=== PATIENT | male | born 1945 | race Caucasian/White ===

== ENCOUNTER 2016-09-03 07:16 | Outpatient (CLI) | payer MEDICARE, OTHER | END 2016-09-03 07:17 | disposition home or self-care (01) | DX: I82.509 Chronic embolism and thrombosis of unspecified deep veins of unspecified lower extremity (principal); Z79.01 Long term (current) use of anticoagulants ==

== ENCOUNTER 2016-10-29 07:10 | Outpatient (CLI) | payer MEDICARE, OTHER | END 2016-10-29 07:11 | disposition home or self-care (01) | DX: I82.509 Chronic embolism and thrombosis of unspecified deep veins of unspecified lower extremity (principal); Z79.01 Long term (current) use of anticoagulants ==

== ENCOUNTER 2016-12-30 13:54 | Outpatient (CLI) | payer MEDICARE, OTHER | END 2016-12-30 13:55 | disposition home or self-care (01) | LOC: LAB.S 13:54 | PROVIDERS: ATTEND Internal Medicine | DX: I82.509 Chronic embolism and thrombosis of unspecified deep veins of unspecified lower extremity (principal) | CPT/HCPCS: 85610 ==

== ENCOUNTER 2017-02-14 07:12 | Outpatient (CLI) | payer MEDICARE, OTHER | END 2017-02-14 07:13 | disposition home or self-care (01) | LOC: LAB.F 07:12 | PROVIDERS: ATTEND Internal Medicine | DX: I82.509 Chronic embolism and thrombosis of unspecified deep veins of unspecified lower extremity (principal) | CPT/HCPCS: 85610 ==

== ENCOUNTER 2017-02-25 07:14 | Outpatient (CLI) | payer MEDICARE, OTHER ==
[2017-02-25 11:36] LABS: BASOPHILS % (AUTO) 0.4 %; EOSINOPHILS # (AUTO) 0.1 10^3/uL (0.0-0.7); HGB - HEMOGLOBIN 15.4 g/dL (14.0-18.0); LYMPHOCYTES # (AUTO) 1.6 10^3/uL (1.5-3.5); MONOCYTES # (AUTO) 0.6 10^3/uL (0.0-1.0); UNCORRECTED WHITE BLOOD COUNT 5.3 x10^3/uL; WHITE BLOOD COUNT 5.3 x10^3/uL (4.8-10.8)
[2017-02-25 11:47] LABS: CHOL/HDL RATIO 3.5 (<5.0); CHOLESTEROL 155 mg/dL; GLUCOSE 100 mg/dL (70-100); HDL CHOLESTEROL 44 mg/dL; LDL/HDL RATIO 2.1 (<3.6); TRIGLYCERIDES 100 mg/dL; VLDL CHOLESTEROL 20 mg/dL
[2017-02-25 12:05] LABS: EOSINOPHILS % (AUTO) 1.5 %; HCT - HEMATOCRIT 44.7 % (42.0-52.0); LYMPHOCYTES % (AUTO) 30.8 %; MEAN CORPUSCULAR HEMOGLOBIN 31.5 pg (27.0-31.0); MEAN CORPUSCULAR HGB CONC 34.5 g/dL (32.0-36.0); MEAN CORPUSCULAR VOLUME 91.3 fL (80.0-94.0); MEAN PLATELET VOLUME 7.6 fL (7.4-11.4); MONOCYTES % (AUTO) 10.9 %; NEUTROPHILS % (AUTO) 56.4 %; NUCLEATED RED BLOOD CELLS AUTO 0.1 /100WBC; RED BLOOD COUNT 4.89 10^6/uL (4.70-6.10); RED CELL DISTRIBUTION WIDTH 13.7 % (12.0-15.0)
== END 2017-02-25 07:15 | disposition home or self-care (01) ==
LOC: LAB.F 07:14
PROVIDERS: ATTEND Internal Medicine
DX: I82.509 Chronic embolism and thrombosis of unspecified deep veins of unspecified lower extremity (principal); E78.5 Hyperlipidemia, unspecified; N52.9 Male erectile dysfunction, unspecified; D07.5 Carcinoma in situ of prostate; Z79.01 Long term (current) use of anticoagulants
CPT/HCPCS: 36415; 80061; 82947; 84153; 85025

== ENCOUNTER 2017-05-23 07:05 | Outpatient (CLI) | payer MEDICARE, OTHER | END 2017-05-23 07:06 | disposition home or self-care (01) | LOC: LAB.F 07:05 | PROVIDERS: ATTEND Internal Medicine | DX: I82.509 Chronic embolism and thrombosis of unspecified deep veins of unspecified lower extremity (principal); Z79.01 Long term (current) use of anticoagulants | CPT/HCPCS: 85610 ==

== ENCOUNTER 2017-06-02 14:40 | Outpatient (CLI) | payer MEDICARE, OTHER | END 2017-06-02 14:41 | disposition home or self-care (01) | LOC: LAB.F 14:40 | PROVIDERS: ATTEND Internal Medicine | DX: I82.509 Chronic embolism and thrombosis of unspecified deep veins of unspecified lower extremity (principal); Z79.01 Long term (current) use of anticoagulants | CPT/HCPCS: 85610 ==

== ENCOUNTER 2017-07-07 10:07 | Outpatient (CLI) | payer MEDICARE, OTHER | END 2017-07-07 10:08 | disposition home or self-care (01) | LOC: LAB.S 10:07 | PROVIDERS: ATTEND Internal Medicine | DX: I82.509 Chronic embolism and thrombosis of unspecified deep veins of unspecified lower extremity (principal); Z79.01 Long term (current) use of anticoagulants | CPT/HCPCS: 85610 ==

== ENCOUNTER 2017-07-13 03:45 | Emergency (ER) | payer MEDICARE, OTHER ==
[2017-07-13] MEDS ORDERED: DEXAMETHASONE 10 MG/ML VIAL PO STA (04:07)
[2017-07-13] MEDS ORDERED: KETOROLAC 60 MG/2 ML VIAL IM STA (04:07)
--- NOTE | 2017-07-13 04:11 | ED Physician Documentation ---
PD HPI NECK PAIN - Stated complaint Stated Complaint: NECK STIFFNESS - Chief complaint Chief Complaint: Ext Problem - History obtained from History obtained from: Patient, Family - History of Present Illness Timing - onset: Enter time (129), Today Timing - duration: Hours Timing - details: Abrupt onset, Still present Location: Mid, Lower Quality: Pain, Spasm, Sharp Associated symptoms: No: Fever, Weakness, Numbness, Incontinent of urine, Unable to urinate, Hematuria, Incontinent of stool Improves with: Rest, Position Worsened by: Movement, Twisting Contributing factors: Other (watches TV in a recliner and will nap there as well.) Similar symptoms before: No diagnosis Recently seen: Clinic - Additional information Additional information: 71-year-old male has had a sore neck for the past 4 days and significantly worse and he is unable to move his neck at all. He was feeling better earlier in the day and he did some chain sawing. He has recently been seen in walk-in clinic for URI and was put on a course of antibiotic for 10 days and his symptoms cleared completely. He had his INR checked 5 days ago it was elevated and he did not stop his medication. Review of Systems Constitutional: denies: Fever, Chills, Myalgias, Fatigue Eyes: denies: Decreased vision Ears: denies: Ear pain Nose: denies: Rhinorrhea / runny nose, Congestion Throat: denies: Sore throat Cardiac: denies: Chest pain / pressure, Palpitations Respiratory: denies: Dyspnea, Cough GI: denies: Abdominal Pain, Nausea, Vomiting : denies: Dysuria, Frequency Skin: denies: Rash Musculoskeletal: reports: Neck pain. denies: Back pain, Extremity pain Neurologic: denies: Generalized weakness, Focal weakness, Numbness, Difficulty speaking, Confused, Altered mental status, Headache, Head injury, LOC PD PAST MEDICAL HISTORY - Past Medical History Past Medical History: Yes Cardiovascular: Hypertension, High cholesterol, Deep vein thrombosis - Past Surgical History Past Surgical History: No - Present Medications Home Medications: Ambulatory Orders Medication Instructions Recorded Confirmed Amlodipine Besylate 5 mg PO DAILY 07/13/17 07/13/17 Cyclobenzaprine [Flexeril] 10 mg PO TID PRN #20 tablet 07/13/17 HYDROcod/ACETAM 5/325 [[place] 5/325] 1 - 2 ea PO Q6H PRN #15 tablet 07/13/17 Multivitamin [Multivitamins] 1 cap PO DAILY 07/13/17 07/13/17 Simvastatin 10 mg PO DAILY 07/13/17 07/13/17 Warfarin Sodium [Coumadin] 2 mg PO DAILY 07/13/17 07/13/17 Warfarin Sodium [Coumadin] 3 mg PO DAILY 07/13/17 07/13/17 - Allergies Allergies/Adverse Reactions: Allergies Allergy/AdvReac Type Severity Reaction Status Date / Time No Known Drug Allergies Allergy Verified 07/13/17 03:50 - Social History Does the pt smoke?: No Smoking Status: Never smoker Does the pt drink ETOH?: Yes Does the pt have substance abuse?: No - POLST Patient has POLST: No PD ED PE NORMAL - Vitals Vital signs reviewed: Yes (hypertensive ) - General General: Alert and oriented X 3, No acute distress, Well developed/nourished, Other (The patient is sitting up and not moving his neck he carefully moves his body to view to the side. ) - HEENT HEENT: Atraumatic, PERRL, EOMI, Ears normal, Moist mucous membranes, Pharynx benign - Neck Neck: Other (There is some central pain to palpation of the mid and lower cervical spine. He is not able to flex or extend without severe pain. He has some relief with traction placed on the mastoids and this allows some movement ) - Cardiac Cardiac: RRR, No murmur - Respiratory Respiratory: No respiratory distress, Clear bilaterally - Back Back: No CVA TTP - Derm Derm: Normal color, Warm and dry, No rash - Extremities Extremities: No deformity, No edema - Neuro Neuro: Alert and oriented X 3, control engineer 2-12 intact, No motor deficit, No sensory deficit, Normal speech Eye Opening: Spontaneous Motor: Obeys Commands Verbal: Oriented GCS Score: 15 - Psych Psych: Normal mood, Normal affect Results - Vitals Vitals: Vital Signs - 24 hr 07/13/17 03:50 Temperature 36.4 C L Heart Rate 92 Respiratory 18 Rate Blood Pressure 145/82 H O2 Saturation 97 Oxygen O2 Source Room air - Labs Labs: Laboratory Tests 07/13/17 04:15 Whole Blood INR 2.7 H PD MEDICAL DECISION MAKING - ED course Complexity details: reviewed old records, reviewed results, re-evaluated patient , considered differential, d/w patient, d/w family ED course: 71-year-old male with history of DVT who is on Coumadin has a very stiff neck this morning and he has good improvement with use of Toradol and dexamethasone. His INR is 2.7 this morning a marked improvement from 3.9 earlier in the week. I am less concerned about spinal epidural abscess or bleeding. Departure - Departure Disposition: 01 Home, Self Care Clinical Impression: Torticollis, acute Condition: Stable Instructions: ED Spasm Neck No Injury Follow-Up: Trav Sam MD [Primary Care Provider] - Prescriptions: Cyclobenzaprine [Flexeril] 10 mg PO TID PRN #20 tablet PRN Reason: Spasms HYDROcod/ACETAM 5/325 [[place] 5/325] 1 - 2 ea PO Q6H PRN #15 tablet PRN Reason: Pain
[2017-07-13] MEDS ORDERED: HYDROcod/ACET 5/325 Prepack 6 PO STA (04:54)
[2017-07-13 05:06] VITALS: BP 117/82
== END 2017-07-13 05:05 | disposition home or self-care (01) ==
LOC: ED 03:45
DX: M43.6 Torticollis (principal); I10 Essential (primary) hypertension; E78.00 Pure hypercholesterolemia, unspecified; Z86.718 Personal history of other venous thrombosis and embolism; Z79.01 Long term (current) use of anticoagulants
CPT/HCPCS: 85610; 96372; 99283; 99284

== ENCOUNTER 2017-09-22 04:56 | Emergency (ER) | payer MEDICARE, OTHER ==
[2017-09-22 05:02] VITALS: BP 149/83
--- NOTE | 2017-09-22 05:11 | ED Physician Documentation ---
PD HPI NECK PAIN - Stated complaint Stated Complaint: STIFF NECK - Chief complaint Chief Complaint: Back Pain - History obtained from History obtained from: Patient - History of Present Illness Timing - onset: Enter time (22:30), Last night Timing - duration: Hours Timing - details: Gradual onset Pain level now: 6 Location: Upper, Mid, Lower Quality: Pain, Spasm, Similar to prior episodes Associated symptoms: No: Fever, Weakness, Numbness, Incontinent of urine, Unable to urinate, Hematuria, Incontinent of stool Improves with: Rest, Position Worsened by: Movement Similar symptoms before: Diagnosis (torticoliis) Recently seen: Emergency Dept - Additional information Additional information: T and R from this ED few months ago for same, had good relief with IM toradol and PO decadron, and he requests those medications at this time. this episode started at approximately 10:30 PM while at rest after driving all day, which he feels locked his neck up. denies injury, fever, chills, sweats. he tried a tablet of flexeril, prescribed from previous visit, but no relief. he does not think he ever filled the vicodin rx (and if he did, he and his do not know where it is). Review of Systems Constitutional: reports: Reviewed and negative Ears: reports: Reviewed and negative Nose: reports: Reviewed and negative Musculoskeletal: reports: Neck pain. denies: Back pain Neurologic: reports: Reviewed and negative PD PAST MEDICAL HISTORY - Past Medical History Past Medical History: Yes Cardiovascular: Hypertension, High cholesterol, Deep vein thrombosis - Past Surgical History Past Surgical History: No - Present Medications Home Medications: Ambulatory Orders Medication Instructions Recorded Confirmed Amlodipine Besylate 5 mg PO DAILY 07/13/17 07/13/17 Cyclobenzaprine [Flexeril] 10 mg PO TID PRN #20 tablet 07/13/17 Multivitamin [Multivitamins] 1 cap PO DAILY 07/13/17 07/13/17 Simvastatin 10 mg PO DAILY 07/13/17 07/13/17 Warfarin Sodium [Coumadin] 2 mg PO DAILY 07/13/17 07/13/17 Warfarin Sodium [Coumadin] 3 mg PO DAILY 07/13/17 07/13/17 Hydrocodone/Acetaminophen 1 - 2 each PO Q6HR PRN #14 tablet 09/22/17 [Hydrocodon-Acetaminophen 5-325] - Allergies Allergies/Adverse Reactions: Allergies Allergy/AdvReac Type Severity Reaction Status Date / Time No Known Drug Allergies Allergy Verified 09/22/17 05:02 - Social History Does the pt smoke?: No Smoking Status: Never smoker Does the pt drink ETOH?: Yes Does the pt have substance abuse?: No - POLST Patient has POLST: No PD ED PE NORMAL - Vitals Vital signs reviewed: Yes - General General: Alert and oriented X 3 (NAD while standing , looking stiffly straight ahead, but clearly uncomfortable with any attempt at rotation, flexion, or extension of neck), No acute distress (NAD while standing , looking stiffly straight ahead), Well developed/nourished - HEENT HEENT: PERRL, EOMI, Moist mucous membranes - Neck Neck: No bony TTP Results - Vitals Vitals: Vital Signs - 24 hr 09/22/17 04:58 Temperature 36.4 C L Heart Rate 85 Respiratory 16 Rate Blood Pressure 149/83 H O2 Saturation 98 Oxygen O2 Source Room air PD MEDICAL DECISION MAKING - ED course Complexity details: reviewed old records, re-evaluated patient, considered differential, d/w patient ED course: adequate relief with toradol and decadron Departure - Departure Disposition: 01 Home, Self Care Clinical Impression: Torticollis, acute Condition: Good Instructions: ED Neck Pain No Trauma Follow-Up: Trav Sam MD [Primary Care Provider] - Within 1 week Prescriptions: Hydrocodone/Acetaminophen [Hydrocodon-Acetaminophen 5-325] 1 - 2 each PO Q6HR PRN #14 tablet PRN Reason: Pain Discharge Date/Time: 09/22/17 06:17
[2017-09-22] MEDS ORDERED: DEXAMETHASONE 10 MG/ML VIAL PO STA (05:20)
[2017-09-22] MEDS ORDERED: KETOROLAC 60 MG/2 ML VIAL IM STA (05:20)
[2017-09-22] MEDS ORDERED: CHERRY SYRUP 10 ML UDC PO ONE (05:35)
== END 2017-09-22 06:17 | disposition home or self-care (01) ==
LOC: ED 04:56
DX: M43.6 Torticollis (principal); I10 Essential (primary) hypertension; E78.00 Pure hypercholesterolemia, unspecified; Z86.718 Personal history of other venous thrombosis and embolism; Z79.01 Long term (current) use of anticoagulants
CPT/HCPCS: 96372; 99283; A9270

== ENCOUNTER 2017-09-25 13:02 | Outpatient (CLI) | payer MEDICARE, OTHER | END 2017-09-25 13:03 | disposition home or self-care (01) | LOC: LAB.F 13:02 | PROVIDERS: ATTEND Internal Medicine | DX: I82.509 Chronic embolism and thrombosis of unspecified deep veins of unspecified lower extremity (principal); Z79.01 Long term (current) use of anticoagulants | CPT/HCPCS: 85610 ==

== ENCOUNTER 2017-11-19 08:09 | Outpatient (CLI) | payer MEDICARE, OTHER | END 2017-11-19 08:10 | disposition home or self-care (01) | LOC: LAB.F 08:09 | PROVIDERS: ATTEND Internal Medicine | DX: I82.509 Chronic embolism and thrombosis of unspecified deep veins of unspecified lower extremity (principal); Z79.01 Long term (current) use of anticoagulants | CPT/HCPCS: 85610 ==

== ENCOUNTER 2017-12-10 10:14 | Outpatient (CLI) | payer MEDICARE, OTHER | END 2017-12-10 10:15 | disposition home or self-care (01) | LOC: LAB.F 10:14 | PROVIDERS: ATTEND Internal Medicine | DX: I82.509 Chronic embolism and thrombosis of unspecified deep veins of unspecified lower extremity (principal); Z79.01 Long term (current) use of anticoagulants | CPT/HCPCS: 85610 ==

== ENCOUNTER 2018-02-02 07:15 | Outpatient (CLI) | payer MEDICARE, OTHER | END 2018-02-02 07:16 | disposition home or self-care (01) | LOC: LAB.F 07:15 | PROVIDERS: ATTEND Internal Medicine | DX: I82.509 Chronic embolism and thrombosis of unspecified deep veins of unspecified lower extremity (principal); Z79.01 Long term (current) use of anticoagulants | CPT/HCPCS: 85610 ==

== ENCOUNTER 2018-03-04 07:12 | Outpatient (CLI) | payer MEDICARE, OTHER ==
[2018-03-04 10:42] LABS: CHOL/HDL RATIO 3.8 (<5.0); CHOLESTEROL 165 mg/dL; GLUCOSE,FASTING 105 mg/dL (70-100); HDL CHOLESTEROL 43 mg/dL; LDL CHOLESTEROL,CALCULATED 94 mg/dL; LDL/HDL RATIO 2.2 (<3.6); VLDL CHOLESTEROL 28 mg/dL
== END 2018-03-04 07:13 | disposition home or self-care (01) ==
LOC: LAB.F 07:12
PROVIDERS: ATTEND Internal Medicine
DX: Z00.00 Encounter for general adult medical examination without abnormal findings (principal); D07.5 Carcinoma in situ of prostate; I82.509 Chronic embolism and thrombosis of unspecified deep veins of unspecified lower extremity; E78.5 Hyperlipidemia, unspecified; R73.01 Impaired fasting glucose; I10 Essential (primary) hypertension; E66.9 Obesity, unspecified
CPT/HCPCS: 36415; 80061; 82947; 83721; 84153

== ENCOUNTER 2018-08-24 07:08 | Outpatient (CLI) | payer MEDICARE, OTHER | END 2018-08-24 07:09 | LOC: LAB.F 07:08 | PROVIDERS: ATTEND Internal Medicine | DX: I82.509 Chronic embolism and thrombosis of unspecified deep veins of unspecified lower extremity (principal); Z79.01 Long term (current) use of anticoagulants | CPT/HCPCS: 85610 ==

== ENCOUNTER 2018-09-14 07:28 | Outpatient (CLI) | payer MEDICARE, OTHER | END 2018-09-14 07:29 | disposition home or self-care (01) | LOC: LAB.F 07:28 | PROVIDERS: ATTEND Internal Medicine | DX: I82.509 Chronic embolism and thrombosis of unspecified deep veins of unspecified lower extremity (principal); Z79.01 Long term (current) use of anticoagulants | CPT/HCPCS: 85610 ==

== ENCOUNTER 2018-12-04 13:29 | Outpatient (CLI) | payer MEDICARE, OTHER | END 2018-12-04 13:30 | disposition home or self-care (01) | LOC: LAB.F 13:29 | PROVIDERS: ATTEND Internal Medicine | DX: I82.509 Chronic embolism and thrombosis of unspecified deep veins of unspecified lower extremity (principal); Z79.01 Long term (current) use of anticoagulants | CPT/HCPCS: 85610 ==

== ENCOUNTER 2019-02-03 06:52 | Outpatient (CLI) | payer MEDICARE, OTHER ==
[2019-02-03 10:52] LABS: CHOL/HDL RATIO 3.3 (<5.0); CHOLESTEROL 119 mg/dL; GLUCOSE,FASTING 108 mg/dL (70-100); HDL CHOLESTEROL 36 mg/dL; LDL CHOLESTEROL,CALCULATED 66 mg/dL; LDL/HDL RATIO 1.8 (<3.6); VLDL CHOLESTEROL 17 mg/dL
== END 2019-02-03 06:53 | disposition home or self-care (01) ==
LOC: LAB.S 06:52
PROVIDERS: ATTEND Internal Medicine
DX: I82.509 Chronic embolism and thrombosis of unspecified deep veins of unspecified lower extremity (principal); Z79.01 Long term (current) use of anticoagulants; I10 Essential (primary) hypertension; D07.5 Carcinoma in situ of prostate; E78.5 Hyperlipidemia, unspecified; R73.01 Impaired fasting glucose; E66.9 Obesity, unspecified; M79.672 Pain in left foot
CPT/HCPCS: 36415; 80061; 82947; 83721; 84153; 85610

== ENCOUNTER 2019-04-23 09:52 | Outpatient (CLI) | payer MEDICARE, OTHER | END 2019-04-23 09:53 | disposition home or self-care (01) | LOC: LAB.S 09:52 | PROVIDERS: ATTEND Internal Medicine | DX: I82.509 Chronic embolism and thrombosis of unspecified deep veins of unspecified lower extremity (principal); Z79.01 Long term (current) use of anticoagulants | CPT/HCPCS: 85610 ==

== ENCOUNTER 2019-06-17 09:52 | Outpatient (CLI) | payer MEDICARE, OTHER | END 2019-06-17 09:53 | disposition home or self-care (01) | LOC: LAB.S 09:52 | PROVIDERS: ATTEND Internal Medicine | DX: Z79.01 Long term (current) use of anticoagulants (principal); I82.509 Chronic embolism and thrombosis of unspecified deep veins of unspecified lower extremity | CPT/HCPCS: 85610 ==

== ENCOUNTER 2019-08-18 14:01 | Outpatient (CLI) | payer MEDICARE, OTHER | END 2019-08-18 14:02 | disposition home or self-care (01) | LOC: LAB.S 14:01 | PROVIDERS: ATTEND Internal Medicine | DX: Z79.01 Long term (current) use of anticoagulants (principal); I82.509 Chronic embolism and thrombosis of unspecified deep veins of unspecified lower extremity | CPT/HCPCS: 85610 ==

== ENCOUNTER 2019-12-09 13:06 | Outpatient (CLI) | payer MEDICARE, OTHER | END 2019-12-09 13:07 | disposition home or self-care (01) | LOC: LAB.S 13:06 | PROVIDERS: ATTEND Internal Medicine | DX: I82.509 Chronic embolism and thrombosis of unspecified deep veins of unspecified lower extremity (principal); Z79.01 Long term (current) use of anticoagulants | CPT/HCPCS: 85610 ==

== ENCOUNTER 2020-03-04 08:54 | Outpatient (CLI) | payer MEDICARE, OTHER ==
[2020-03-04 13:49] LABS: CHOL/HDL RATIO 3.9 (<5.0); CHOLESTEROL 156 mg/dL; HDL CHOLESTEROL 40 mg/dL; LDL CHOLESTEROL,CALCULATED 82 mg/dL; LDL/HDL RATIO 2.1 (<3.6); VLDL CHOLESTEROL 34 mg/dL
== END 2020-03-04 08:55 | disposition home or self-care (01) ==
LOC: LAB.S 08:54
PROVIDERS: ATTEND Internal Medicine
DX: Z00.00 Encounter for general adult medical examination without abnormal findings (principal); I10 Essential (primary) hypertension; D07.5 Carcinoma in situ of prostate; I82.509 Chronic embolism and thrombosis of unspecified deep veins of unspecified lower extremity; E78.5 Hyperlipidemia, unspecified; E66.9 Obesity, unspecified; R73.01 Impaired fasting glucose; Z79.01 Long term (current) use of anticoagulants
CPT/HCPCS: 36415; 80061; 82947; 83721; 84153; 85610

== ENCOUNTER 2020-03-14 06:55 | Outpatient (CLI) | payer MEDICARE, OTHER | END 2020-03-14 06:56 | disposition home or self-care (01) | LOC: LAB 06:55 | PROVIDERS: ATTEND Internal Medicine | DX: Z00.00 Encounter for general adult medical examination without abnormal findings (principal); R73.01 Impaired fasting glucose | CPT/HCPCS: 36415; 82947 ==

== ENCOUNTER 2020-04-26 07:11 | Outpatient (CLI) | payer MEDICARE, OTHER | END 2020-04-26 07:12 | disposition home or self-care (01) | LOC: LAB.S 07:11 | PROVIDERS: ATTEND Internal Medicine | DX: I82.509 Chronic embolism and thrombosis of unspecified deep veins of unspecified lower extremity (principal); Z79.01 Long term (current) use of anticoagulants | CPT/HCPCS: 85610 ==

== ENCOUNTER 2020-06-08 09:29 | Outpatient (CLI) | payer MEDICARE, OTHER | END 2020-06-08 09:30 | disposition home or self-care (01) | LOC: LAB.S 09:29 | PROVIDERS: ATTEND Internal Medicine | DX: I82.509 Chronic embolism and thrombosis of unspecified deep veins of unspecified lower extremity (principal); Z79.01 Long term (current) use of anticoagulants | CPT/HCPCS: 85610 ==

== ENCOUNTER 2020-06-19 23:14 | Emergency (ER) | payer MEDICARE, OTHER ==
[2020-06-19 23:25] VITALS: BP 137/77
[2020-06-19] MEDS ORDERED: methocarbamoL 500 MG TABLET PO STA (23:44)
[2020-06-19] MEDS ORDERED: KETOROLAC 30 MG/ML VIAL IM STA (23:44)
--- NOTE | 2020-06-20 00:30 | ED Physician Documentation ---
History of Present Illness - Stated complaint Stated Complaint: NECK PAIN/STIFF - Chief complaint Chief Complaint: Trauma Hd/Nk - Additonal information Additional information: 74-year-old man with history of high blood pressure, hyperlipidemia presents with neck pain, gradual onset upon waking from sleep late tonight, bilateral posterior neck with stiffness sensation, worse with head turning, spasmodic mild/moderate severity. patient has had pain like this before, relieved with toradol/muscle relaxers. denies alfredo, dizziness, fnd, chest pain sore throat, sob, traumatic injury. Review of Systems Skin: denies: Rash Musculoskeletal: reports: Neck pain. denies: Back pain Neurologic: denies: Focal weakness, Numbness PD PAST MEDICAL HISTORY - Past Medical History Past Medical History: Yes Cardiovascular: Hypertension, High cholesterol, Deep vein thrombosis Respiratory: None HEENT: Chronic hearing loss Derm: None - Past Surgical History Past Surgical History: No General: Cholecystectomy, Appendectomy, Hiatal hernia repair Ortho: Knee replacement Cardiovascular: Fempop bypass - Present Medications Home Medications: Ambulatory Orders Medication Instructions Recorded Confirmed Amlodipine Besylate 5 mg PO DAILY 07/13/17 07/13/17 Multivitamin [Multivitamins] 1 cap PO DAILY 07/13/17 07/13/17 Simvastatin 10 mg PO DAILY 07/13/17 07/13/17 Warfarin Sodium [Coumadin] 2 mg PO DAILY 07/13/17 07/13/17 Warfarin Sodium [Coumadin] 3 mg PO DAILY 07/13/17 07/13/17 Methocarbamol [Robaxin-750] 750 mg PO Q8H PRN 3 Days #9 tablet 06/20/20 - Allergies Allergies/Adverse Reactions: Allergies Allergy/AdvReac Type Severity Reaction Status Date / Time No Known Drug Allergies Allergy Verified 09/22/17 05:02 - Social History Does the pt smoke?: No Smoking Status: Never smoker Does the pt drink ETOH?: Yes Does the pt have substance abuse?: No - POLST Patient has POLST: No PD ED PE NORMAL - Vitals Vital signs reviewed: Yes - General General: Alert and oriented X 3 - HEENT HEENT: Atraumatic, PERRL, EOMI - Neck Neck: Supple, no meningeal sign, Other (BL trapezius muscle ttp at the superior aspect on insertion at the base of the skull. discomfort with passive rom of the neck. ) - Cardiac Cardiac: RRR - Respiratory Respiratory: No respiratory distress, Clear bilaterally - Derm Derm: Normal color, Warm and dry - Neuro Neuro: Alert and oriented X 3, electrical engineering manager 2-12 intact, No motor deficit, No sensory deficit, Normal speech Results - Vitals Vitals: Vital Signs - 24 hr 06/19/20 23:18 Temperature 36.1 C L Heart Rate 88 Respiratory 18 Rate Blood Pressure 137/77 H O2 Saturation 96 Oxygen O2 Source Room air PD MEDICAL DECISION MAKING - ED course Complexity details: reviewed results, re-evaluated patient, d/w patient ED course: 74-year-old man with neck pain in a muscular distribution without red flags for dissection. Improvement in pain with Toradol and Robaxin. Extensive education given about return cautions. Patient will follow up with his primary doctor Departure - Departure Disposition: 01 Home, Self Care Clinical Impression: Neck pain Condition: Good Instructions: ED Neck Back Pain General Prescriptions: Methocarbamol [Robaxin-750] 750 mg PO Q8H PRN 3 Days #9 tablet PRN Reason: Pain Comments: You were seen in the emergency department for muscle spasm in the neck. We gave you Toradol via a shot and Robaxin, a muscle relaxant by a pill. You have been given a prescription for Robaxin. Be careful because it is mildly sedating And can increase your risk of falls. Do gentle stretching in the hot shower for your neck and consider IcyHot or [employer]ay [id number]. Get a memory foam pillow and try to sleep on your back to prevent muscle spasms in the neck. Return to the ED if you have any new or worsening symptoms. And follow-up with your primary doctor Discharge Date/Time: 06/20/20 00:34
== END 2020-06-20 00:34 | disposition home or self-care (01) ==
LOC: ED 23:14
DX: M54.2 Cervicalgia (principal); M62.838 Other muscle spasm; I10 Essential (primary) hypertension; E78.5 Hyperlipidemia, unspecified; Z86.718 Personal history of other venous thrombosis and embolism; Z79.01 Long term (current) use of anticoagulants
CPT/HCPCS: 96372; 99283; 99284; A9270

== ENCOUNTER 2020-07-24 08:13 | Outpatient (CLI) | payer MEDICARE, OTHER | END 2020-07-24 08:14 | disposition home or self-care (01) | LOC: LAB.S 08:13 | PROVIDERS: ATTEND Internal Medicine | DX: I82.509 Chronic embolism and thrombosis of unspecified deep veins of unspecified lower extremity (principal); Z79.01 Long term (current) use of anticoagulants | CPT/HCPCS: 85610 ==

== ENCOUNTER 2020-09-18 07:02 | Outpatient (CLI) | payer MEDICARE, OTHER | END 2020-09-18 07:03 | disposition home or self-care (01) | LOC: LAB.S 07:02 | PROVIDERS: ATTEND Internal Medicine | DX: I82.509 Chronic embolism and thrombosis of unspecified deep veins of unspecified lower extremity (principal); Z79.01 Long term (current) use of anticoagulants | CPT/HCPCS: 85610 ==

== ENCOUNTER 2020-11-21 07:02 | Outpatient (CLI) | payer MEDICARE, OTHER | END 2020-11-21 07:03 | disposition home or self-care (01) | LOC: LAB.S 07:02 | PROVIDERS: ATTEND Internal Medicine | DX: I82.509 Chronic embolism and thrombosis of unspecified deep veins of unspecified lower extremity (principal); Z79.01 Long term (current) use of anticoagulants | CPT/HCPCS: 36416; 85610 ==

== ENCOUNTER 2021-02-13 07:04 | Outpatient (CLI) | payer MEDICARE, OTHER ==
[2021-02-13 14:51] LABS: BUN - BLOOD UREA NITROGEN 15 mg/dL (6-20); CALCIUM 9.4 mg/dL (8.5-10.3); CARBON DIOXIDE - CO2 27 mmol/L (21-32); CHLORIDE 106 mmol/L (101-111); CHOL/HDL RATIO 3.9 (<5.0); CHOLESTEROL 148 mg/dL; CREATININE 1.1 mg/dL (0.6-1.2); GFR - MDRD 65 (>89); GLUCOSE 110 mg/dL (70-100); HDL CHOLESTEROL 38 mg/dL; LDL CHOLESTEROL,CALCULATED 85 mg/dL; LDL/HDL RATIO 2.2 (<3.6); POTASSIUM 4.3 mmol/L (3.5-5.0); SODIUM 142 mmol/L (135-145); TRIGLYCERIDES 123 mg/dL; VLDL CHOLESTEROL 25 mg/dL
== END 2021-02-13 07:05 | disposition home or self-care (01) ==
LOC: LAB.S 07:04
PROVIDERS: ATTEND Internal Medicine
DX: Z00.00 Encounter for general adult medical examination without abnormal findings (principal); I10 Essential (primary) hypertension; D07.5 Carcinoma in situ of prostate; I82.509 Chronic embolism and thrombosis of unspecified deep veins of unspecified lower extremity; E78.5 Hyperlipidemia, unspecified; R73.01 Impaired fasting glucose; E66.9 Obesity, unspecified
CPT/HCPCS: 36415; 80048; 80061; 83721; 85610

== ENCOUNTER 2021-04-27 08:00 | Outpatient (CLI) | payer MEDICARE, OTHER | END 2021-04-27 23:59 | disposition home or self-care (01) | LOC: LAB.S 08:00 | PROVIDERS: ATTEND Internal Medicine | DX: I82.509 Chronic embolism and thrombosis of unspecified deep veins of unspecified lower extremity (principal); Z79.01 Long term (current) use of anticoagulants | CPT/HCPCS: 36416; 85610 ==

== ENCOUNTER 2021-08-03 07:03 | Outpatient (CLI) | payer MEDICARE, OTHER | END 2021-08-03 07:04 | disposition home or self-care (01) | LOC: LAB.S 07:03 | PROVIDERS: ATTEND Internal Medicine | DX: I82.509 Chronic embolism and thrombosis of unspecified deep veins of unspecified lower extremity (principal); Z79.01 Long term (current) use of anticoagulants | CPT/HCPCS: 36416; 85610 ==

== ENCOUNTER 2021-09-21 07:03 | Outpatient (CLI) | payer MEDICARE, OTHER | END 2021-09-21 07:04 | disposition home or self-care (01) | LOC: LAB.S 07:03 | PROVIDERS: ATTEND Internal Medicine | DX: I82.509 Chronic embolism and thrombosis of unspecified deep veins of unspecified lower extremity (principal); Z79.01 Long term (current) use of anticoagulants | CPT/HCPCS: 36416; 85610 ==

== ENCOUNTER 2021-10-11 02:07 | Emergency (ER) | payer MEDICARE, OTHER ==
[2021-10-11] MEDS ORDERED: CHERRY SYRUP 10 ML UDC PO ONE (02:30)
[2021-10-11] MEDS ORDERED: KETOROLAC 60 MG/2 ML VIAL IM STA (02:30)
[2021-10-11] MEDS ORDERED: DEXAMETHASONE 10 MG/ML VIAL PO STA (02:30)
--- NOTE | 2021-10-11 02:48 | ED Physician Documentation ---
PD HPI NECK PAIN - Stated complaint Stated Complaint: NECK PX - Chief complaint Chief Complaint: General - History obtained from History obtained from: Patient - History of Present Illness Timing - onset: Today Timing - duration: Hours Timing - details: Gradual onset, Still present Location: Lower, Left Quality: Pain, Spasm, Sharp, Similar to prior episodes Associated symptoms: No: Fever, Weakness, Numbness, Incontinent of urine, Unable to urinate, Hematuria, Incontinent of stool Improves with: Rest, Position Worsened by: Movement Contributing factors: Other (chain sawing and wood splitting 5 days ago.) Similar symptoms before: Diagnosis (spastic torticollis) Recently seen: Not recently seen - Additional information Additional information: 75-year-old male who has had 3 visits to the emergency department for acute muscle spasm in his neck over the past several years has done some chain sawing and wood splitting 5 days ago with his and today he has developed acute spastic torticollis similar to what is had previously. He has pain in the left side of his neck with tender muscles and difficulty moving his neck around. No numbness or tingling no weakness no current illness. Review of Systems Constitutional: denies: Fever Eyes: denies: Decreased vision Ears: denies: Ear pain Nose: denies: Congestion Throat: denies: Sore throat Cardiac: denies: Chest pain / pressure Respiratory: denies: Cough GI: denies: Vomiting : denies: Dysuria, Frequency PD PAST MEDICAL HISTORY - Past Medical History Past Medical History: Yes Cardiovascular: Hypertension, High cholesterol, Deep vein thrombosis Respiratory: None HEENT: Chronic hearing loss Derm: None - Past Surgical History Past Surgical History: No General: Cholecystectomy, Appendectomy, Hiatal hernia repair Ortho: Knee replacement Cardiovascular: Fempop bypass HEENT: Other - Present Medications Home Medications: Ambulatory Orders Medication Instructions Recorded Confirmed Amlodipine Besylate 5 mg PO DAILY 07/13/17 10/11/21 Multivitamin [Multivitamins] 1 cap PO DAILY 07/13/17 10/11/21 Simvastatin 10 mg PO DAILY 07/13/17 10/11/21 Warfarin Sodium [Coumadin] 2 mg PO DAILY 07/13/17 10/11/21 Warfarin Sodium [Coumadin] 3 mg PO DAILY 07/13/17 10/11/21 - Allergies Allergies/Adverse Reactions: Allergies Allergy/AdvReac Type Severity Reaction Status Date / Time No Known Drug Allergies Allergy Verified 10/11/21 02:21 - Social History Does the pt smoke?: No Smoking Status: Never smoker Does the pt drink ETOH?: Yes Does the pt have substance abuse?: No - Immunizations Immunizations are current?: Yes - POLST Patient has POLST: No PD ED PE NORMAL - Vitals Vital signs reviewed: Yes - General General: Alert and oriented X 3, Well developed/nourished, Other (75-year-old male in the [facility], [place] with a cervical pillow in place moves his neck very little.) - HEENT HEENT: Atraumatic, PERRL, EOMI - Neck Neck: Other (There is specific point tenderness to the trapezius along the left cervical spine especially as it reaches the distal portion of this.) - Respiratory Respiratory: No respiratory distress - Derm Derm: Normal color, Warm and dry, No rash - Extremities Extremities: No deformity, No edema - Neuro Neuro: Alert and oriented X 3, rock wool insulator 2-12 intact, No motor deficit, No sensory deficit, Normal speech Eye Opening: Spontaneous Motor: Obeys Commands Verbal: Oriented GCS Score: 15 - Psych Psych: Normal mood, Normal affect Results - Vitals Vitals: Vital Signs - 24 hr 10/11/21 02:10 Temperature 36.1 C L Heart Rate 88 Respiratory 18 Rate Blood Pressure 136/86 H O2 Saturation 97 Oxygen O2 Source Room air PD MEDICAL DECISION MAKING - ED course Complexity details: reviewed old records, reviewed results, re-evaluated patient, considered differential ED course: 75-year-old male has had acute spastic torticollis 3 times previously requiring some treatment in the emergency department he did get good relief with use of Toradol and dexamethasone onto previous visits and on his last visit he got Toradol and Robaxin. He does not recall difference from any of these treatments.Today he is again treated with dexamethasone and Toradol. Departure - Departure Disposition: 01 Home, Self Care Clinical Impression: Torticollis, acute Condition: Stable Instructions: ED Spasm Neck No Injury Follow-Up: Trav Sam MD [Primary Care Provider] - Comments: Shad, today looks like you have had another episode of neck spasm and we expect you to have a similar course as you have previously. Since you have not had to use the medications we have prescribed previously we will not prescribe anything today.
[2021-10-11 03:23] VITALS: BP 122/69
== END 2021-10-11 03:22 | disposition home or self-care (01) ==
LOC: ED 02:07
DX: M43.6 Torticollis (principal); I10 Essential (primary) hypertension; Z86.718 Personal history of other venous thrombosis and embolism; Z79.01 Long term (current) use of anticoagulants
CPT/HCPCS: 96372; 99282; 99283; A9270

== ENCOUNTER 2022-01-21 07:04 | Outpatient (CLI) | payer MEDICARE, OTHER | END 2022-01-21 07:05 | disposition home or self-care (01) | LOC: LAB.S 07:04 | PROVIDERS: ATTEND Internal Medicine | DX: I82.509 Chronic embolism and thrombosis of unspecified deep veins of unspecified lower extremity (principal); Z79.01 Long term (current) use of anticoagulants | CPT/HCPCS: 36416; 85610 ==

== ENCOUNTER 2022-03-29 07:05 | Outpatient (CLI) | payer MEDICARE, OTHER | END 2022-03-29 07:06 | disposition home or self-care (01) | LOC: LAB.S 07:05 | PROVIDERS: ATTEND Internal Medicine | DX: I82.509 Chronic embolism and thrombosis of unspecified deep veins of unspecified lower extremity (principal); Z79.01 Long term (current) use of anticoagulants | CPT/HCPCS: 36416; 85610 ==

== ENCOUNTER 2022-06-12 07:53 | Outpatient (CLI) | payer MEDICARE, OTHER | END 2022-06-12 07:54 | disposition home or self-care (01) | LOC: LAB.S 07:53 | PROVIDERS: ATTEND Internal Medicine | DX: I82.509 Chronic embolism and thrombosis of unspecified deep veins of unspecified lower extremity (principal); Z79.01 Long term (current) use of anticoagulants | CPT/HCPCS: 36416; 85610 ==

== ENCOUNTER 2022-08-13 07:02 | Outpatient (CLI) | payer MEDICARE, OTHER | END 2022-08-13 07:03 | disposition home or self-care (01) | LOC: LAB.S 07:02 | PROVIDERS: ATTEND Internal Medicine | DX: I82.509 Chronic embolism and thrombosis of unspecified deep veins of unspecified lower extremity (principal); Z79.01 Long term (current) use of anticoagulants | CPT/HCPCS: 36416; 85610 ==

== ENCOUNTER 2022-10-10 06:56 | Outpatient (CLI) | payer MEDICARE, OTHER | END 2022-10-10 06:57 | disposition home or self-care (01) | LOC: LAB.S 06:56 | PROVIDERS: ATTEND Internal Medicine | DX: I82.509 Chronic embolism and thrombosis of unspecified deep veins of unspecified lower extremity (principal); Z79.01 Long term (current) use of anticoagulants | CPT/HCPCS: 36416; 85610 ==

== ENCOUNTER 2023-06-09 07:02 | Outpatient (CLI) | payer MEDICARE, OTHER | END 2023-06-09 07:03 | disposition home or self-care (01) | LOC: LAB.S 07:02 | PROVIDERS: ATTEND Internal Medicine | DX: Z51.81 Encounter for therapeutic drug level monitoring (principal); I82.509 Chronic embolism and thrombosis of unspecified deep veins of unspecified lower extremity; Z79.01 Long term (current) use of anticoagulants | CPT/HCPCS: 36416; 85610 ==

== ENCOUNTER 2023-06-19 08:00 | Outpatient (CLI) | payer MEDICARE, OTHER ==
--- NOTE | 2023-06-19 13:22 | XRAY Report ---
PROCEDURE: Shoulder 3 View RT INDICATIONS: RIGHT SHOULDER PAIN/FALL TECHNIQUE: 3 views of the shoulder were acquired. COMPARISON: None. FINDINGS: Bones: No acute fractures or dislocations. Mild glenohumeral joint space loss and trace spur formati on. Moderate spurring at the acromioclavicular joint. Deformity of healed mid clavicle fracture. No suspicious bony lesions. Visualized ribs appear intact. Soft tissues: No suspicious soft tissue calcifications. The visualized lungs are within normal limi ts. IMPRESSION: No acute fractures. Mild to moderate degenerative changes as described. Deformity of well-healed remote mid clavicle fracture. Reviewed by: Rayna Silveira MD on 06/19/2023 1:21 PM PST Approved by: Rayna Silveira MD on 06/19/2023 1:21 PM PST Station ID: [id number]
== END 2023-06-19 23:59 | disposition home or self-care (01) ==
LOC: DI.S 08:00
PROVIDERS: ATTEND Registered Nurse
DX: M19.011 Primary osteoarthritis, right shoulder (principal); S42.011D Anterior displaced fracture of sternal end of right clavicle, subsequent encounter for fracture with routine healing

== ENCOUNTER 2023-07-01 08:00 | Outpatient (CLI) | payer MEDICARE, OTHER ==
--- NOTE | 2023-07-01 13:21 | XRAY Report ---
PROCEDURE: Clavicle RT INDICATIONS: RIGHT CLAVICLE/SHOULDER PAIN INJURY FROM FALL TECHNIQUE: 2 views of the clavicle were acquired. COMPARISON: Right shoulder radiographs 06/19/2023. FINDINGS: Bones: Chronic healed fracture deformity at the midshaft of the right clavicle. Moderate acromioclav icular joint osteoarthrosis. Soft tissues: No suspicious soft tissue calcifications. IMPRESSION: No acute osseous abnormality. Remote prior healed mid clavicular shaft fracture with residual osseous deformity. Moderate acromioclavicular joint osteoarthrosis. Reviewed by: Alek Carter MD on 07/01/2023 1:20 PM [facility] Approved by: Alek Carter MD on 07/01/2023 1:20 PM PST Station ID: [id number]
== END 2023-07-01 23:59 | disposition home or self-care (01) ==
LOC: DI.WOS 08:00
PROVIDERS: ATTEND Orthopaedic Surgery
DX: Z09 Encounter for follow-up examination after completed treatment for conditions other than malignant neoplasm (principal); Z87.81 Personal history of (healed) traumatic fracture; M19.011 Primary osteoarthritis, right shoulder

== ENCOUNTER 2023-07-11 07:22 | Outpatient (CLI) | payer MEDICARE, OTHER | END 2023-07-11 07:23 | disposition home or self-care (01) | LOC: LAB.S 07:22 | PROVIDERS: ATTEND Internal Medicine | DX: I82.509 Chronic embolism and thrombosis of unspecified deep veins of unspecified lower extremity (principal); Z79.01 Long term (current) use of anticoagulants | CPT/HCPCS: 36416; 85610 ==

== ENCOUNTER 2023-11-03 07:09 | Outpatient (CLI) | payer MEDICARE, OTHER | END 2023-11-03 07:10 | disposition home or self-care (01) | LOC: LAB.S 07:09 | PROVIDERS: ATTEND Internal Medicine | DX: I82.509 Chronic embolism and thrombosis of unspecified deep veins of unspecified lower extremity (principal); Z79.01 Long term (current) use of anticoagulants | CPT/HCPCS: 36416; 85610 ==

== ENCOUNTER 2023-11-20 07:58 | Outpatient (CLI) | payer MEDICARE, OTHER | END 2023-11-20 07:59 | disposition home or self-care (01) | LOC: LAB.S 07:58 | PROVIDERS: ATTEND Internal Medicine | DX: I82.509 Chronic embolism and thrombosis of unspecified deep veins of unspecified lower extremity (principal); Z79.01 Long term (current) use of anticoagulants | CPT/HCPCS: 36416; 85610 ==

== ENCOUNTER 2024-03-22 07:24 | Outpatient (CLI) | payer MEDICARE, OTHER | END 2024-03-22 07:25 | disposition home or self-care (01) | LOC: LAB.S 07:24 | PROVIDERS: ATTEND Internal Medicine | DX: I82.509 Chronic embolism and thrombosis of unspecified deep veins of unspecified lower extremity (principal); Z79.01 Long term (current) use of anticoagulants | CPT/HCPCS: 36416; 85610 ==